=== PATIENT | female | born 2000 | race Caucasian/White ===

== ENCOUNTER 2023-01-03 00:14 | Emergency (ER) | payer OTHER, BC ==
[~2023-01-03] VITALS: Ht 190.5 cm; Wt 66.7 kg
[2023-01-03] MEDS ORDERED: KETOROLAC TROMETHAMINE INJ 60 MG/2 ML VIAL IM ONE ×2 (01:00→01:17)
--- NOTE | 2023-01-03 01:21 | NUR ---
Pt remain alert, responsive as Toradol 60mg IM given as ordered. Pt care continue.
--- NOTE | 2023-01-03 01:37 | NUR ---
Pt remain alert, responsive as Right Wrist X-Ray done. Pt care continue as awaist results.
[2023-01-03] MEDS ORDERED: KETO10TA2 PO (01:45)
[2023-01-03 02:06] VITALS: BP 119/80
--- NOTE | 2023-01-03 02:06 | NUR ---
Patient discharged to home in stable condition. Written and verbal after care instructions given. Patient verbalizes understanding of instruction.
== END 2023-01-03 02:07 | disposition home or self-care (01) ==
LOC: ER 00:19
DX: S52.501A Unspecified fracture of the lower end of right radius, initial encounter for closed fracture (principal); X50.9XXA Other and unspecified overexertion or strenuous movements or postures, initial encounter; Y93.89 Activity, other specified; Y92.89 Other specified places as the place of occurrence of the external cause; Y99.8 Other external cause status
CPT/HCPCS: 99283; 29125; 96372; 73110; J1885